=== PATIENT | male | born 1965 | race Two or more races ===

== ENCOUNTER 2020-10-29 10:27 | Emergency (ER) | payer OTHER ==
[~2020-10-29] VITALS: Ht 172.7 cm; Wt 95.3 kg
== END 2020-10-29 14:37 | disposition home or self-care (01) ==
LOC: ER 10:27
DX: N39.0 Urinary tract infection, site not specified (principal); R50.9 Fever, unspecified; Z03.818 Encounter for observation for suspected exposure to other biological agents ruled out

== ENCOUNTER 2024-12-25 10:28 | Outpatient (CLI) | payer OTHER | END 2024-12-25 10:29 | disposition home or self-care (01) | LOC: TOM 10:28 | PROVIDERS: ATTEND Otolaryngology Otolaryngology/Facial Plastic Surgery | DX: D37.030 Neoplasm of uncertain behavior of the parotid salivary glands (principal) ==